=== PATIENT | male | born 1970 | race Two or more races ===

== ENCOUNTER 2022-12-14 03:16 | Emergency (ER) | payer BC ==
[~2022-12-14] VITALS: Ht 182.9 cm; Wt 79.8 kg
[2022-12-14] MEDS ORDERED: CEPHALEXIN500 MG PO (07:21)
== END 2022-12-14 07:43 ==
LOC: ER 03:16
DX: S01.81XA Laceration without foreign body of other part of head, initial encounter (principal); W18.39XA Other fall on same level, initial encounter; Y93.89 Activity, other specified; Y92.89 Other specified places as the place of occurrence of the external cause; Y99.8 Other external cause status; R55 Syncope and collapse